=== PATIENT | female | born 1950 | race Hispanic/Latino ===

== ENCOUNTER → 2017-10-08 | Day surgery (SDC) | payer MEDICARE ==
[2017-10-04 16:08] LABS: BASOPHILS # (AUTO) 0.1 (0.0-0.1); BASOPHILS % 1.5 % (0.0-1.0); EOSINOPHILS # (AUTO) 0.4 (0.0-0.4); HEMATOCRIT 41.7 % (34.2-44.1); HEMOGLOBIN 13.8 g/dL (12.0-16.0); LYMPHOCYTES # (AUTO) 3.3 (1.0-3.2); LYMPHOCYTES % 37.6 % (18.0-39.1); MEAN CORPUSCULAR HEMOGLOBIN 28.8 pg (28-32); MEAN CORPUSCULAR HGB CONC 33.1 g/dL (31-35); MEAN CORPUSCULAR VOLUME 87.1 fL (81-99); MONOCYTES # (AUTO) 0.8 (0.2-0.8); MONOCYTES % 9.7 % (4.4-11.3); NEUTROPHILS # (AUTO) 4.1 (2.1-6.9); NEUTROPHILS % 46.9 % (38.7-80.0); PLATELET COUNT 272 x10e3/uL (140-360); RED BLOOD COUNT 4.79 x10e6/uL (3.6-5.1); RED CELL DISTRIBUTION WIDTH 12.4 % (11.7-14.4)
--- NOTE | 2017-10-04 16:44 | Diagnostic Imaging Report ---
PROCEDURE: Frontal and lateral views of the chest. COMPARISON: None. INDICATIONS: PRE-OPERATIVE CHEST X-RAY FOR CARPAL TUNNEL SYNDROME FINDINGS: Lines/tubes: None. Lungs: The lungs are well inflated and clear. There is no evidence of pneumonia or pulmonary edema. Pleura: There is no pleural effusion or pneumothorax. Heart and mediastinum: The heart and the mediastinum are normal. Bones: No acute bony abnormality. Right upper quadrant cholecystectomy clips. IMPRESSION: No acute cardiopulmonary disease. Dictated by: Minor Varela M.D. on 10/04/2017 at 16:44 Electronically approved by: Minor Varela M.D. on 10/04/2017 at 16:44
[~2017-10-08] MED LIST: BACLOFEN10 MG PO; BUPIVACAINE HCL 0.5% INJ 30 ML VIAL INJ ONE; CEFAZOLIN SOD 1 GM VIAL ONE; CIPRO500 MG PO; DEXAMETHASONE SOD PHOS INJ 4 MG/ML VIAL ONE; FENTANYL CITRATE/PF 100MCG/2 ML INJ ONE; KETOROLAC TROMETHAMINE 30 MG/ML VIAL ONE; LIDOCAINE HCL 2% LOCAL INJ 5 ML SDV VIAL INJ ONE; MIDAZOLAM HCL 2 MG/2 ML VIAL ONE; ONDANSETRON HCL INJ 2 MG/ML VIAL ONE; OXAPROZIN600 MG PO; PROPOFOL IV EMULSION 10 MG/ML 20 ML VIAL ONE; SEVOFLURANE INHAL SOLN 250 ML PEN BTL ONE
--- OUTSIDE RECORDS SUMMARY | 2017-10-08 09:56 | XMS REPORT ---
Author Author [facility] Address Unknown Phone Unavailable Care Team Providers Care Red Hat Engineer Name Role Phone ADI AU Unavailable Unavailable Problems This patient has no known problems. Allergies, Adverse Reactions, Alerts This patient has no known allergies or adverse reactions. Medications This patient has no known medications. Results Test Description Test Time Test Comments Text Results Atomic Results Result Comments CHEST 2 VIEWS [place] [address] Patient Name: JILLIAN CARDONA MR #: [id number] : 1950 Age/Sex: 67/F Req #: [id number] Adm Physician: Ordered by: ADI AU MD Report #: [id number] Location: OR Room/Bed: Procedure: [id number] DX/CHEST 2 VIEWS Exam Date: 10/04/17 Exam Time: 1622 REPORT STATUS: Signed PROCEDURE: Frontal and lateral views of the chest. COMPARISON: None. INDICATIONS: PRE-OPERATIVE CHEST X- RAY FOR CARPAL TUNNEL SYNDROME FINDINGS: Lines/tubes: None. Lungs: The lungs are well inflated and clear. There is no evidence of pneumonia or pulmonary edema. Pleura: There is no pleural effusion or pneumothorax. Heart and mediastinum: The heart and the mediastinum are normal. Bones: No acute bony abnormality. Right upper quadrant cholecystectomy clips. IMPRESSION: No acute cardiopulmonary disease. Dictated by: Amina Varela M.D. on 10/04/2017 at 16:44 Electronically approved by: Amina Varela M.D. on 10/04/2017 at 16:44 Dictated By: AMINA VARELA MD 43 Transcribed By: SUKHJINDER on 10/04/171643 COPY TO: ADI AU MD
--- NOTE | 2017-10-08 14:47 | Operative Report ---
DATE OF PROCEDURE: October 08, 2017 FURNITURE SALESPERSON: Nate Sampson PA-C The patient was brought to the operating room for induction of anesthesia. Throughout this case, my PA's assistance was necessary for retraction of soft tissue and positioning of the extremity. This allows for efficient and technically successful execution of the operation and is considered medically necessary. PREOPERATIVE DIAGNOSIS: Right hand carpal tunnel syndrome and 4th trigger finger. POSTOPERATIVE DIAGNOSIS: Right hand carpal tunnel syndrome and 4th trigger finger. PROCEDURE: Right endoscopic carpal tunnel release and release of the 4th trigger finger. INDICATIONS: The patient is a 67-year-old lady who has clinic signs and symptoms consistent with right carpal tunnel syndrome and right 4th trigger finger. The findings and options have been discussed. The patient has failed conservative management and would like to proceed with definitive intervention. The risks and benefits of surgery have been explained. She states she understands and wishes to proceed. DESCRIPTION OF PROCEDURE: The patient was brought to the operating room and placed under general anesthetic. She received prophylactic antibiotics. Her right upper extremity was prepped and draped in a sterile manner. A preoperative time out was performed. The extremity was exsanguinated, and a proximal tourniquet was inflated to 250 mmHg. Initial attention was directed towards the carpal tunnel. A transverse incision was made over the flexion crease of the right wrist. The palmaris longus was retracted to the radial side of the wound. The flexor retinaculum was elevated and incised with a pair of tenotomy scissors. An elevator was used to tease the tenosynovium off of the undersurface of the transverse carpal ligament. Dilators were placed, and the hook of the hamate was palpated. The MicroAire endoscope was then placed into the carpal tunnel. The undersurface of the transverse carpal ligament was cleanly visualized without evidence of soft-tissue interposition. The knife was deployed, and the ligament was cut from distal to proximal. Full-thickness cut was noted. The proximal retinaculum was incised under direct visualization with a pair of Metzenbaum scissors. The wound was then closed with 2 interrupted nylon stitches. A second incision was made in line with the distal palmar crease of the 4th finger. The A1 candelario was carefully exposed. This was released with a 15-blade surgical knife. The release was completed with a pair of tenotomy scissors. The tendon was retracted from the wound and noted to have no further stenosing tenosynovitis. There was some very linear abraded wear of the tendon. The 2nd incision was then also closed with 2 interrupted nylon stitches. A sterile bandage was applied. The patient was extubated and transported to the recovery room in stable condition. There was no blood loss, and all needle and sponge counts were correct. Job#: [id number]
== END | disposition home or self-care (01) ==
LOC: OR 09:54
PROVIDERS: ATTEND Specialist
DX: G56.01 Carpal tunnel syndrome, right upper limb (principal); M65.341 Trigger finger, right ring finger; M62.838 Other muscle spasm; K21.9 Gastro-esophageal reflux disease without esophagitis; Z01.810 Encounter for preprocedural cardiovascular examination; Z01.812 Encounter for preprocedural laboratory examination; Z01.818 Encounter for other preprocedural examination; Z68.35 Body mass index [BMI] 35.0-35.9, adult
CPT/HCPCS: 26055; 29848; 36415; 71046; 85025; 93005; J0690; J1100; J1885; J2001; J2250; J2405

== ENCOUNTER 2017-12-07 13:54 | Observation (INO) | payer MEDICARE ==
[~2017-12-07] VITALS: Ht 157.5 cm; Wt 88.9 kg
[~2017-12-07 13:54] MED LIST changes: -BUPIVACAINE HCL 0.5% INJ 30 ML VIAL INJ ONE; -CEFAZOLIN SOD 1 GM VIAL ONE; -DEXAMETHASONE SOD PHOS INJ 4 MG/ML VIAL ONE; -FENTANYL CITRATE/PF 100MCG/2 ML INJ ONE; -KETOROLAC TROMETHAMINE 30 MG/ML VIAL ONE; -LIDOCAINE HCL 2% LOCAL INJ 5 ML SDV VIAL INJ ONE; -MIDAZOLAM HCL 2 MG/2 ML VIAL ONE; -ONDANSETRON HCL INJ 2 MG/ML VIAL ONE; -PROPOFOL IV EMULSION 10 MG/ML 20 ML VIAL ONE; -SEVOFLURANE INHAL SOLN 250 ML PEN BTL ONE
[2017-12-07 14:34] LABS: BASOPHILS # (AUTO) 0.1 (0.0-0.1); BASOPHILS % 0.6 % (0.0-1.0); EOSINOPHILS # (AUTO) 0.2 (0.0-0.4); EOSINOPHILS % 2.6 % (0.0-6.0); HEMOGLOBIN 11.7 g/dL (12.0-16.0); LYMPHOCYTES # (AUTO) 1.8 (1.0-3.2); LYMPHOCYTES % 18.9 % (18.0-39.1); MEAN CORPUSCULAR HEMOGLOBIN 29.8 pg (28-32); MEAN CORPUSCULAR HGB CONC 33.4 g/dL (31-35); MEAN CORPUSCULAR VOLUME 89.1 fL (81-99); MONOCYTES # (AUTO) 0.8 (0.2-0.8); MONOCYTES % 9.1 % (4.4-11.3); NEUTROPHILS # (AUTO) 6.3 (2.1-6.9); NEUTROPHILS % 67.6 % (38.7-80.0); PLATELET COUNT 304 x10e3/uL (140-360); RED BLOOD COUNT 3.93 x10e6/uL (3.6-5.1); RED CELL DISTRIBUTION WIDTH 13.5 % (11.7-14.4)
[2017-12-07 14:49] LABS: ALANINE AMINOTRANSFERASE 13 IU/L (0-55); ALBUMIN 3.8 g/dL (3.5-5.0); ALBUMIN/GLOBULIN RATIO 1.1 (0.8-2.0); ALKALINE PHOSPHATASE 79 IU/L (40-150); ANION GAP 13.9 mmol/L (8-16); BLOOD UREA NITROGEN 20 mg/dL (7-26); BUN/CREATININE RATIO 27 (6-25); CALCIUM 9.1 mg/dL (8.4-10.2); CARBON DIOXIDE 23 mmol/L (22-29); CHLORIDE 105 mmol/L (98-107); CREATININE, SERUM 0.73 mg/dL (0.57-1.11); EST GLOMERULAR FILTRATION RATE > 60 ML/MIN (60-); GLUCOSE 103 mg/dL (74-118); POTASSIUM 3.9 mmol/L (3.5-5.1); SODIUM 138 mmol/L (136-145)
[2017-12-07] MEDS ORDERED: PROPOFOL IV EMULSION 10 MG/ML 20 ML VIAL ONE (15:45)
[2017-12-07] MEDS ORDERED: SEVOFLURANE INHAL SOLN 250 ML PEN BTL ONE (15:45)
[2017-12-07] MEDS ORDERED: ONDANSETRON HCL INJ 2 MG/ML VIAL ONE (15:45)
[2017-12-07] MEDS ORDERED: KETOROLAC TROMETHAMINE 30 MG/ML VIAL ONE (15:45)
[2017-12-07] MEDS ORDERED: DEXAMETHASONE SOD PHOS INJ 4 MG/ML VIAL ONE (15:45)
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
[2017-12-07 15:56] LABS: INR 1.25; PROTHROMBIN TIME 14.8 seconds (11.9-14.5)
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
[2017-12-07] MEDS ORDERED: IOPAMIDOL 370 MG/ML 200 ML INFUS..BTL INJ ONE (19:20)
[2017-12-07] MEDS ORDERED: SODIUM CHLORIDE 0.9% 50ML 50 ML ONE (19:20)
--- NOTE | 2017-12-07 22:08 | Diagnostic Imaging Report ---
EXAM: Breast Ultrasound INDICATION: \S\RIGHT BREAST HEMATOMA. R/O FLLUID COLLECTION COMPARISON: None TECHNIQUE: Transverse and longitudinal images of the left breast were obtained. FINDINGS: Limited images were obtained of the right breast soft tissues. This examination is not intended as a screening examination for breast cancer or replacement for mammogram. There is a large heterogeneous avascular collection in the right breast from 12-3 o'clock measuring 8 x 4.3 m cm. IMPRESSION: Large right breast hematoma. Recommend clinical and imaging follow-up to document resolution. Signed by: Dr Madeleine Sotomayor MD on 12/07/2017 10:04 PM
[2017-12-07] MEDS: SODIUM CHLORIDE 0.9% 1000ML 1,000 ML IV SCH (22:30)
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
[2017-12-08] VITALS (9 sets, daily range): BP systolic 124–158; BP diastolic 57–80
[2017-12-08] MEDS: SODIUM CHLORIDE 0.9% 1000ML 1,000 ML IV SCH ×2 (07:55→17:02)
[2017-12-08] MEDS ORDERED: BUPIVACAINE 0.25%/EPI 30ML SDV INJ ONE (09:48)
[2017-12-08] MEDS ORDERED: FENTANYL CITRATE/PF 100MCG/2 ML INJ ONE ×2 (10:45→16:08)
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
[2017-12-08] MEDS: HYDROCODONE/APAP 7.5MG-325MG 1 EA TAB PO PRN ×2 (14:06→21:26)
[2017-12-08] MEDS ORDERED: FAMOTIDINE 20 MG TAB PO SCH (16:00)
[2017-12-08] MEDS: FAMOTIDINE 20 MG TAB PO SCH (16:40)
[2017-12-08 17:38] LABS: CHOL/HDL RATIO 2.8 (3.0-3.6)
[2017-12-09] VITALS: BP 99/50
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
[2017-12-09 04:00] VITALS: BP 115/67
[2017-12-09] MEDS: HYDROCODONE/APAP 7.5MG-325MG 1 EA TAB PO PRN (07:30)
[2017-12-09 07:32] VITALS: BP 139/71
[2017-12-09 07:36] LABS: BASOPHILS % 0.4 % (0.0-1.0); EOSINOPHILS # (AUTO) 0.1 (0.0-0.4); EOSINOPHILS % 0.6 % (0.0-6.0); HEMATOCRIT 29.5 % (34.2-44.1); HEMOGLOBIN 9.8 g/dL (12.0-16.0); LYMPHOCYTES # (AUTO) 1.9 (1.0-3.2); MEAN CORPUSCULAR HEMOGLOBIN 30.2 pg (28-32); MEAN CORPUSCULAR HGB CONC 33.2 g/dL (31-35); MONOCYTES # (AUTO) 1.1 (0.2-0.8); MONOCYTES % 9.2 % (4.4-11.3); NEUTROPHILS # (AUTO) 8.2 (2.1-6.9); NEUTROPHILS % 71.7 % (38.7-80.0); PLATELET COUNT 276 x10e3/uL (140-360); RED BLOOD COUNT 3.24 x10e6/uL (3.6-5.1); RED CELL DISTRIBUTION WIDTH 13.5 % (11.7-14.4)
[2017-12-09 08:02] LABS: ANION GAP 8.9 mmol/L (8-16); BLOOD UREA NITROGEN 14 mg/dL (7-26); BUN/CREATININE RATIO 20 (6-25); CALCIUM 8.4 mg/dL (8.4-10.2); CARBON DIOXIDE 23 mmol/L (22-29); CHLORIDE 111 mmol/L (98-107); CREATININE, SERUM 0.69 mg/dL (0.57-1.11); EST GLOMERULAR FILTRATION RATE > 60 ML/MIN (60-); GLUCOSE 151 mg/dL (74-118); POTASSIUM 3.9 mmol/L (3.5-5.1); SODIUM 139 mmol/L (136-145)
[2017-12-09] MEDS: SODIUM CHLORIDE 0.9% 1000ML 1,000 ML IV SCH (08:20)
[2017-12-09] MEDS: FAMOTIDINE 20 MG TAB PO SCH (08:20)
[2017-12-09 12:23] VITALS: BP 130/64
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
== END 2017-12-09 02:00 | disposition home or self-care (01) ==
LOC: ER 13:54 → MED/SURG 23:26
PROVIDERS: ADMIT Internal Medicine; ATTEND Internal Medicine
DX: S20.01XA Contusion of right breast, initial encounter (principal); S22.41XA Multiple fractures of ribs, right side, initial encounter for closed fracture; S22.22XA Fracture of body of sternum, initial encounter for closed fracture; E80.6 Other disorders of bilirubin metabolism; K44.9 Diaphragmatic hernia without obstruction or gangrene; E66.9 Obesity, unspecified; V43.53XA Car driver injured in collision with pick-up truck in traffic accident, initial encounter; Y93.89 Activity, other specified; Y92.410 Unspecified street and highway as the place of occurrence of the external cause
CPT/HCPCS: 10140; 36415 ×3; 71045; 71260; 76642; 80048; 80053; 80061; 83036; 85025 ×2; 85610; 85730; 93005; 99284; G0378 ×3; J1100; J1885; J2405; J7030 ×2; Q9967

== ENCOUNTER 2018-04-23 02:00 | Emergency (ER) | payer MEDICARE ==
[~2018-04-23] VITALS: Ht 309.9 cm; Wt 88.9 kg
[2018-04-23] MEDS ORDERED: SODIUM CHLORIDE 0.9% 1000ML 1,000 ML IV ONE (02:30)
[2018-04-23] MEDS ORDERED: ACETAMINOPHEN 1000 MG/100 ML IV STA (02:30)
[2018-04-23 04:25] LABS: COLOR,URINE YELLOW (YELLOW)
[2018-04-23 04:26] LABS: BACTERIA,URINE MANY /HPF; BILIRUBIN,URINE NEGATIVE (NEGATIVE); CLARITY,URINE HAZY (CLEAR); EPITHELIAL CELLS,URINE FEW /LPF; KETONES,URINE NEGATIVE (NEGATIVE); LEUKOCYTE ESTERASE ,URINE 1+ (NEGATIVE); NITRITE,URINE NEGATIVE (NEGATIVE); PROTEIN,URINE DIPSTICK NEGATIVE (NEGATIVE); RBC,URINE 0-5 /HPF (0-5); URINE UROBILINOGEN 0.2 mg/dL (0.2 - 1); WBC,URINE (MAN) >50 /HPF (0-5)
[2018-04-23] MEDS ORDERED: PENICILLIN G BENZATHINE LA 1.2 MU TBX IM STA (04:28)
--- NOTE | 2018-04-23 04:30 | Diagnostic Imaging Report ---
EXAMINATION: Head CT without contrast. HISTORY:Fever. COMPARISON:None. TECHNIQUE: Multidetector axial images were obtained from the foramen magnum to the vertex without contrast. The images were reconstructed using brain and bone algorithms. Thin section brain images were reformatted into coronal and sagittal planes. Dose modulation, iterative reconstruction, and/or weight based adjustment of the mA/kV was utilized to reduce the radiation dose to as low as reasonably achievable. Intravenous contrast: None IMAGE QUALITY: Acceptable. FINDINGS: Skull/scalp: No lytic or blastic. lesions. No surgical changes. Parenchyma: Nonspecific few, scattered supratentorial white matter hypodensity are likely related to small vessel ischemic changes. Focal hypodensity in the inferior and posterior aspect of left putamen may represent old lacunar infarct or prominent perivascular space. No acute hemorrhage, mass or acute major vascular territorial infarct. Arteries: No density suggestive of thrombosis. Dural sinuses: No abnormal density suggestive of thrombosis. Ventricles: No hydrocephalus or displacement. Extra-axial spaces: No abnormal density. Brain volume: Normal for age. Craniocervical junction: No mass, Chiari malformation, or basilar invagination. Sella: No mass. Paranasal/mastoid sinuses: Under pneumatization and sclerosis of bilateral mastoid air cells possibly related to chronic inflammation. IMPRESSION: No acute intracranial abnormality. Mild supratentorial white matter microvascular ischemic changes. Old lacunar infarct vs prominent perivascular space in left putamen. Findings were informed to ER physician Dr. Mancilla by phone at 3:14 AM on 04/23/2018. Signed by: Dr. Tennille Carrion M.D. on 04/23/2018 4:26 AM
[2018-04-23 04:31] LABS: INFLUENZAE A&B ANTIGEN (RAPID) NEGATIVE (NEGATIVE); INR 1.1; PARTIAL THROMBOPLASTIN TIME 35.5 seconds (23.8-35.5); PROTHROMBIN TIME 15.2 seconds (11.9-14.5); STREPTOCOCCUS GRP A ANTIGEN POSITIVE (NEGATIVE)
[2018-04-23 04:33] LABS: ALANINE AMINOTRANSFERASE 12 IU/L (0-55); ALBUMIN 3.4 g/dL (3.5-5.0); ALBUMIN/GLOBULIN RATIO 0.9 (0.8-2.0); ALKALINE PHOSPHATASE 100 IU/L (40-150); ANION GAP 17.5 mmol/L (8-16); BLOOD UREA NITROGEN 12 mg/dL (7-26); BUN/CREATININE RATIO 16 (6-25); CALCIUM 8.7 mg/dL (8.4-10.2); CARBON DIOXIDE 19 mmol/L (22-29); CHLORIDE 103 mmol/L (98-107); CREATINE KINASE 23 IU/L (29-168); CREATININE, SERUM 0.74 mg/dL (0.57-1.11); EST GLOMERULAR FILTRATION RATE > 60 ML/MIN (60-); GLUCOSE 175 mg/dL (74-118); POTASSIUM 3.5 mmol/L (3.5-5.1); SODIUM 136 mmol/L (136-145)
[2018-04-23 04:34] LABS: BASOPHILS # (AUTO) 0.1 (0.0-0.1); BASOPHILS % 0.6 % (0.0-1.0); EOSINOPHILS # (AUTO) 0.3 (0.0-0.4); EOSINOPHILS % 1.7 % (0.0-6.0); HEMATOCRIT 36.1 % (34.2-44.1); LYMPHOCYTES # (AUTO) 1.1 (1.0-3.2); LYMPHOCYTES % 6.7 % (18.0-39.1); MEAN CORPUSCULAR HEMOGLOBIN 28.2 pg (28-32); MEAN CORPUSCULAR HGB CONC 33.2 g/dL (31-35); MEAN CORPUSCULAR VOLUME 84.9 fL (81-99); MONOCYTES # (AUTO) 0.9 (0.2-0.8); MONOCYTES % 5.5 % (4.4-11.3); NEUTROPHILS # (AUTO) 13.4 (2.1-6.9); NEUTROPHILS % 84.2 % (38.7-80.0); PLATELET COUNT 241 x10e3/uL (140-360); RED BLOOD COUNT 4.25 x10e6/uL (3.6-5.1); RED CELL DISTRIBUTION WIDTH 13.8 % (11.7-14.4)
--- NOTE | 2018-04-23 04:35 | Diagnostic Imaging Report ---
EXAMINATION: CHEST 2 VIEWS INDICATION: Fever COMPARISON: None FINDINGS: TUBES and LINES: None. LUNGS: Lungs are well inflated. Lungs are clear. There is no evidence of pneumonia or pulmonary edema. PLEURA: No pleural effusion or pneumothorax. HEART AND MEDIASTINUM: The cardiomediastinal silhouette is unremarkable. BONES AND SOFT TISSUES: No acute osseous lesion. Soft tissues are unremarkable. UPPER ABDOMEN: No free air under the diaphragm. IMPRESSION: No acute thoracic abnormality. Signed by: Dr. Eleuterio Ovalle M.D. on 04/23/2018 4:32 AM
[2018-04-23 04:59] VITALS: BP 108/55
== END 2018-04-23 05:06 | disposition home or self-care (01) ==
LOC: ER 02:00
DX: R50.9 Fever, unspecified (principal); J02.0 Streptococcal pharyngitis; N30.90 Cystitis, unspecified without hematuria
CPT/HCPCS: 36415; 70450; 71046; 80053; 81001; 82550; 82553; 83518; 83605; 84484; 85025; 85610; 85730; 87040; 87071; 87086; 87186; 87205; 87400; 99284; J0561

== ENCOUNTER 2018-10-01 07:26 | Inpatient (IN) | payer MEDICARE, OTHER ==
[~2018-10-01] VITALS: Ht 157.5 cm; Wt 93.4 kg
[2018-10-01] MEDS: DILTIAZEM HCL 5 MG/ML 5 ML VIAL IV STA ×2 (07:26→08:26)
--- OUTSIDE RECORDS SUMMARY | 2018-10-01 07:29 | XMS REPORT | Summary of Care ---
Author Author [facility] [place] Organization [facility] [place] Address Unknown Phone Unavailable Encounter HQ Joelle_najma(FIN) [id number] Date(s): 08/21/18 - 08/21/18 [facility] [place] [address] [place] [phone] Discharge Disposition: Home or Self Care Attending Physician: Jose Davila MD Referring Physician: Jose Davila MD Vital Signs No data available for this section Problem List Condition Effective Dates Status Health Status Informant Escherichia Active coli(Confirmed)1 Fibromyalgia(Confirm Active ed) Kidney Active stones(Confirmed) 1Problem added by Discern Expert. Allergies, Adverse Reactions, Alerts Substance Reaction Severity Status ciprofloxacin1 Moderate Active 1pt face became swollen and she broke out in hives Medications No data available for this section Results No data available for this section Immunizations Given and Recorded Vaccine Date Status Refusal Reason diphtheria/pertussis, acel/tetanus adult 11/09/15 Given Procedures Procedure Date Related Diagnosis Body Site Status Arthroscopic surgical procedure on knee Completed Carpal tunnel release Completed Cholecystectomy Completed Hysterectomy Completed Social History Social History Type Response Substance Abuse Use: None. Alcohol Never Smoking Status Never smoker; Exposure to Tobacco Smoke None; Cigarette Smoking Last 365 Days No; Reg Smoking Cessation Counseling No entered on: 06/25/18 Assessment and Plan No data available for this section
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
--- OUTSIDE RECORDS SUMMARY | 2018-10-01 07:29 | XMS REPORT | Summary of Care ---
Author Author [facility] [place] Organization [facility] [place] Address Unknown Phone Unavailable Encounter HQ Joelle_najma(FIN) [phone] Date(s): 09/12/17 - 09/12/17 [facility] [place] [address] [place] [address] [phone] Encounter Diagnosis Low back pain (Final) - 09/18/17 Other intervertebral disc degeneration, lumbar region (Final) - Other specific arthropathies, not elsewhere classified, other specified site (Final) - Discharge Disposition: Home or Self Care Attending Physician: Jose Davila MD Vital Signs No data available for this section Problem List Condition Effective Dates Status Health Status Informant Fibromyalgia(Confirm Active ed) Kidney Active stones(Confirmed) Allergies, Adverse Reactions, Alerts Substance Reaction Severity Status NKDA Active Medications No data available for this section [...] No entered on: 11/28/17 Assessment and Plan No data available for this section
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
--- OUTSIDE RECORDS SUMMARY | 2018-10-01 07:29 | XMS REPORT | Summary of Care ---
Author Author [facility] Outpatient Imaging [facility] Address Unknown Phone Unavailable Encounter HQ Encntr_alias(FIN) [id number] Date(s): 02/21/18 - 02/21/18 [facility] Outpatient Imaging [facility] [address] [facility], [address] [place] [phone] Encounter Diagnosis Pain in left leg (Final) - 02/28/18 Pain in right leg (Final) - Discharge Disposition: Home or Self [...]
--- OUTSIDE RECORDS SUMMARY | 2018-10-01 07:29 | XMS REPORT | Summary of Care ---
Author Author [facility] [place] Organization [facility] [place] Address Unknown Phone Unavailable Encounter HQ Facundo(FIN) [id number] Date(s): 10/06/17 - 10/06/17 [facility] [place] [address] [place] [phone] Encounter Diagnosis Radiculopathy, lumbar region (Final) - 10/12/17 Spondylolisthesis, lumbar region (Final) - Spinal stenosis, lumbar region without neurogenic claudication (Final) - Spinal stenosis, thoracolumbar region (Final) - Other specific arthropathies, not [...]
[2018-10-01] MEDS ORDERED: DILTIAZEM HCL 125 ML IV STA (07:42)
--- NOTE | 2018-10-01 08:27 | NUR ---
PATIENT IN HALLWAY ON ZOLL MONITOR, MOVED TO ROOM #3 AND PLACED ON INJECTION MOLDING ENGINEER
[2018-10-01] MEDS: DILTIAZEM HCL 125 ML IV SCH (08:28)
--- NOTE | 2018-10-01 08:28 | NUR ---
HR 136 INCREASED CARDIZEM GTT 10MG/HR
--- NOTE | 2018-10-01 08:35 | Diagnostic Imaging Report ---
PROCEDURE:X-RAY CHEST, ONE VIEW COMPARISON:Patients [facility], DX, CHEST 2 VIEWS, 04/23/2018, 2:40. INDICATIONS:CHEST PAIN, CHEST TIGHTNESS FINDINGS: There are no consolidations, pleural effusions or pneumothorax. The cardiomediastinal silhouette and pulmonary vasculature are normal. There are no acute osseous abnormalities. CONCLUSION: No acute cardiopulmonary abnormality. Bryan Sanz D.O. Dictated by: Bryan Sanz D.O. on 10/01/2018 at 8:35 Electronically approved by: Bryan Sanz D.O. on 10/01/2018 at 8:35
[2018-10-01 08:42] LABS: BASOPHILS # (AUTO) 0.1 (0.0-0.1); BASOPHILS % 0.6 % (0.0-1.0); EOSINOPHILS # (AUTO) 0.2 (0.0-0.4); EOSINOPHILS % 2.1 % (0.0-6.0); HEMATOCRIT 39.4 % (34.2-44.1); LYMPHOCYTES # (AUTO) 2.5 (1.0-3.2); LYMPHOCYTES % 26.3 % (18.0-39.1); MEAN CORPUSCULAR VOLUME 84.9 fL (81-99); MONOCYTES # (AUTO) 0.8 (0.2-0.8); MONOCYTES % 8.4 % (4.4-11.3); NEUTROPHILS # (AUTO) 5.8 (2.1-6.9); PLATELET COUNT 239 x10e3/uL (140-360); RED BLOOD COUNT 4.64 x10e6/uL (3.6-5.1); RED CELL DISTRIBUTION WIDTH 13.2 % (11.7-14.4)
[2018-10-01 08:56] LABS: ALANINE AMINOTRANSFERASE 9 IU/L (0-55); ALBUMIN 3.6 g/dL (3.5-5.0); ALKALINE PHOSPHATASE 69 IU/L (40-150); ANION GAP 13.4 mmol/L (8-16); BLOOD UREA NITROGEN 16 mg/dL (7-26); BUN/CREATININE RATIO 21 (6-25); CALCIUM 9.2 mg/dL (8.4-10.2); CARBON DIOXIDE 22 mmol/L (22-29); CHLORIDE 103 mmol/L (98-107); CREATINE KINASE 42 IU/L (29-168); CREATININE, SERUM 0.76 mg/dL (0.57-1.11); EST GLOMERULAR FILTRATION RATE > 60 ML/MIN (60-); GLUCOSE 144 mg/dL (74-118); POTASSIUM 3.4 mmol/L (3.5-5.1); SODIUM 135 mmol/L (136-145)
--- NOTE | 2018-10-01 08:57 | NUR ---
HR 143 INCREASED CARDIZEM GTT TO 15MG/HR
--- NOTE | 2018-10-01 09:07 | NUR ---
CULTURAL LINK USED AT TRIAGE AND TO UPDATE PATIENT ON PLAN OF CARE
[2018-10-01 09:14] LABS: INR 0.99; PROTHROMBIN TIME 13.6 seconds (11.9-14.5)
[2018-10-01 09:15] LABS: PARTIAL THROMBOPLASTIN TIME 40.1 seconds (23.8-35.5)
[2018-10-01 09:17] LABS: THYROID STIMULATING HORMONE 2.123 uIU/mL (0.350-4.940)
[2018-10-01] MEDS ORDERED: OMEPRAZOLE40 MG PO (09:22)
[2018-10-01] MEDS ORDERED: PEPCID20 MG PO (09:22)
--- NOTE | 2018-10-01 09:25 | NUR ---
SPOKE WITH DAUGHTER ON PHONE UPDATING HER ON HER MOMS STATUS
[2018-10-01] MEDS ORDERED: DIGOXIN INJ 0.25 MG/ML 2 ML AMP IV ONE (09:30)
[2018-10-01 09:31] LABS: COLOR,URINE YELLOW (YELLOW)
[2018-10-01 09:32] LABS: BILIRUBIN,URINE NEGATIVE (NEGATIVE); CLARITY,URINE CLOUDY (CLEAR); KETONES,URINE NEGATIVE (NEGATIVE); LEUKOCYTE ESTERASE ,URINE 1+ (NEGATIVE); NITRITE,URINE POSITIVE (NEGATIVE); PROTEIN,URINE DIPSTICK NEGATIVE (NEGATIVE); URINE UROBILINOGEN 0.2 mg/dL (0.2 - 1)
[2018-10-01 09:38] LABS: WBC,URINE (MAN) >50 /HPF (0-5)
[2018-10-01 09:39] LABS: BACTERIA,URINE MANY /HPF; EPITHELIAL CELLS,URINE FEW /LPF; RBC,URINE 0-5 /HPF (0-5)
[2018-10-01] MEDS ORDERED: ENOXAPARIN INJ 80 MG/0.8 ML SYR SC STA (09:40)
[2018-10-01] MEDS ORDERED: CEFTRIAXONE SOD 1 GM/NS 50 ML 50 ML IV ONE ×2 (09:45→10:00)
[2018-10-01] MEDS ORDERED: ENOXAPARIN INJ 80 MG/0.8 ML SYR SC ONE (09:46)
[2018-10-01] MEDS ORDERED: DIGOXIN INJ 0.25 MG/ML 2 ML AMP ONE (09:46)
[2018-10-01] MEDS ORDERED: POTASSIUM CHLORIDE 20 MEQ TAB CR PO STA (10:32)
[2018-10-01] MEDS ORDERED: POTASSIUM CHLORIDE 20 MEQ TAB CR PO ONE (10:37)
[2018-10-01] MEDS ORDERED: AMIODARONE HCL 900 MG in DEXTROSE 5% 500ML 500 ML IV STA (10:42)
[2018-10-01] MEDS ORDERED: AMIODARONE HCL 150 MG/100 ML BAG IV ONE (10:45)
--- NOTE | 2018-10-01 11:28 | NUR ---
PER DR. MCNEAL, HE WANTS TO STOP CARDIZEM DRIP AND START AMIODORONE
[2018-10-01] MEDS ORDERED: AMIODARONE 900MG 500 ML IV ONE (11:33)
[2018-10-01] MEDS ORDERED: AMIODARONE HCL 150MG 100 ML ONE (11:33)
--- NOTE | 2018-10-01 12:02 | NUR ---
BEDSIDE REPORT CLAUDIA BOSS R.N.
[2018-10-01 17:31] LABS: CREATINE KINASE MB 0.8 ng/mL (0-5.0)
--- NOTE | 2018-10-01 18:59 | Consultation ---
DATE OF CONSULTATION: 10/01/2018 Cardiology Consult Note REASON FOR CONSULT: AFib with RVR and chest pain. CHIEF COMPLAINT: Chest pain. HISTORY OF PRESENT ILLNESS: The patient is a 68-year-old female, with no prior medical or cardiovascular history, who presents with several episodes of pressure in the middle of her chest and palpitations over the last 12 to 24 hours, finally presented to the ER, noted to be having heart rates in the 140s in atrial fibrillation with RVR, was started on amiodarone drip and has now converted to sinus rhythm, says she feels better. The patient is a nonsmoker, nondiabetic. No family history of CAD. Does not have hypertension or hyperlipidemia as per the patient. Does not take any medicines as an outpatient. PAST MEDICAL HISTORY: None. PAST SURGICAL HISTORY: None. REVIEW OF SYSTEMS: As per the HPI, otherwise negative. SOCIAL HISTORY: She does not smoke, drink, or abuse drugs. FAMILY HISTORY: No family history of early CAD or sudden cardiac . OUTPATIENT MEDICATIONS: None. ALLERGIES: NO KNOWN DRUG ALLERGIES. OBJECTIVE: VITAL SIGNS: Temperature afebrile, pulse 72, respiratory rate 22, blood pressure 108/60, saturating 100%. GENERAL: Middle-aged female, in no acute distress. CARDIOVASCULAR: Regular rate and rhythm. No murmurs, rubs, or gallops. LUNGS: Clear to auscultation bilaterally. ABDOMEN: Soft, nontender, nondistended. NEURO AND PSYCH: Alert and oriented to person, place, and time. Normal affect. INPATIENT MEDICATIONS: Reviewed. LABORATORY DATA: Reviewed. IMAGING DATA: Reviewed. Chest x-ray shows no significant abnormalities. TELEMETRY DATA: Reviewed, shows AFib with RVR on presentation, converted to sinus rhythm with heart rate now in the 70s. ASSESSMENT: 1. Atrial fibrillation with rapid ventricular response, now converted to sinus rhythm. 2. Chest pain. PLAN: Troponin is negative on presentation. Check serial troponins to rule out acute NC. If acute NC is ruled out, then we will plan for nuclear stress test in the morning. Start oral diltiazem for rate control. Thank you for this consult. We will continue to follow. MD ASIF Thapa/MODL /[id number]
[2018-10-01] MEDS: ENOXAPARIN INJ 80 MG/0.8 ML SYR SC SCH (21:57)
[2018-10-01] MEDS ORDERED: ENOXAPARIN SODIUM INJ 100 MG/ML SYR SC SCH (22:00)
[2018-10-02] MEDS: DILTIAZEM HCL 125 ML IV SCH (08:10)
[2018-10-02 08:13] LABS: CHOL/HDL RATIO 2.9 (3.0-3.6)
[2018-10-02 08:20] LABS: CREATINE KINASE MB 0.6 ng/mL (0-5.0)
[2018-10-02] MEDS: ENOXAPARIN INJ 80 MG/0.8 ML SYR SC SCH ×2 (09:17→21:00)
[2018-10-02] MEDS: DILTIAZEM HCL ER 120 MG CAP PO SCH (09:17)
--- NOTE | 2018-10-02 10:46 | NUR ---
CONSENT FOR STRESS TEST SIGNED AND PLACED INTO CHART.
--- NOTE | 2018-10-02 11:04 | NUR ---
SPOKE WITH DR. MCCOY. RECEIVED ORDERS TO DOWNGRADE PATIENT FROM ICU TO [facility].
[2018-10-02] MEDS ORDERED: REGADENOSON 0.4 MG/5 ML SYR IV ONE (11:17)
--- NOTE | 2018-10-02 15:30 | Progress Note ---
DATE: 10/02/2018 Cardiology Progress Note SUBJECTIVE: No major events overnight. No more atrial fibrillation. OBJECTIVE: VITAL SIGNS: Temperature 98.1, pulse 72, respiratory rate 18, blood pressure 117/61, and saturating 98% on room air. GENERAL: female, in no acute distress. CARDIOVASCULAR: Regular rate and rhythm. No murmurs, rubs, or gallops. LUNGS: Clear to auscultation bilaterally. ABDOMEN: Soft, nontender, and nondistended. Obese. NEURO AND PSYCH: Alert and oriented to person, place, and time. Normal affect. INPATIENT MEDICATIONS: Reviewed. LABORATORY DATA: Reviewed. IMAGING DATA: Reviewed. TELEMETRY: Reviewed. No more atrial fibrillation. ASSESSMENT: 1. New-onset atrial fibrillation. 2. Hypertension. PLAN: Continue diltiazem 120 mg p.o. We will change the Lovenox over to Xarelto. CHADS-VASc score is 3 as the patient is female over 65 and has hypertension. Nuclear stress test today to rule out ischemia given earlier chest pain. Thank you for this consult. We will continue to follow. MD NURY ThapaP/MODL /[id number]
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
[2018-10-02] MEDS ORDERED: CEFTRIAXONE SOD 1 GM/NS 50 ML 50 ML IV SCH (16:45)
[2018-10-02] MEDS ORDERED: FAMOTIDINE 20 MG TAB PO SCH (17:00)
[2018-10-02] MEDS: FAMOTIDINE 20 MG TAB PO SCH (17:28)
[2018-10-02 19:40] LABS: POTASSIUM 3.8 mmol/L (3.5-5.1)
[2018-10-02 20:00] VITALS: BP 133/62
[2018-10-02 20:09] VITALS: BP 133/62
[2018-10-03] VITALS (8 sets, daily range): BP systolic 111–149; BP diastolic 61–82
--- NOTE | 2018-10-03 06:57 | NUR ---
IM-progress note O/N; no events REVIEW OF SYSTEMS: Denies any dizziness, chest pain. PHYSICAL EXAMINATION: VITAL SIGNS: Reviewed. GENERAL APPEARANCE: Tired-appearing woman resting in bed. HEENT: Anicteric. Pupils respond to light. No oral lesions. CARDIOVASCULAR: Normal S1 and S2. LUNGS: Moderate breath sounds. ABDOMEN: Soft, nontender, nondistended. EXTREMITIES: No edema or calf tenderness. NEUROLOGICAL: Alert and oriented x3. Moving all extremities. SKIN: Dry. PSYCHIATRIC: Flat affect. LABS: Reviewed. MEDICATIONS: Reviewed. ASSESSMENT: A 67-year-old woman. A.fib with RVR UTI Hypokalemia atypical chest pain obesity BMI 35 PLAN: AV blockade IV abx f/u cx recheck lytes hba1c/lipids TSH normal pepcid on AC 10/03/18 Hba1c/LDL 5.6/91. HR controlled; f/u GNR UTI fx. Ruben Ramirez MD, PhD
--- NOTE | 2018-10-03 07:01 | NUR ---
REPORT GIVEN TO ONCOMING NURSE.WALKING ROUNDS MADE.PT RESTING IN BED WITH NO S/S OF DISTRESS.
[2018-10-03] MEDS: FAMOTIDINE 20 MG TAB PO SCH ×2 (09:28→16:32)
[2018-10-03] MEDS: DILTIAZEM HCL ER 120 MG CAP PO SCH (09:35)
[2018-10-03] MEDS ORDERED: SODIUM CHLORIDE 0.9% 250ML 250 ML ONE (12:39)
[2018-10-03] MEDS: MEROPENEM 500MG/ NS 50ML 50 ML IV SCH ×2 (12:45→20:09)
[2018-10-03] MEDS: RIVAROXABAN 20 MG TABLET PO SCH (16:32)
[2018-10-03] MEDS ORDERED: FLECTOR1 EACH PO (16:54)
[2018-10-03] MEDS: DICLOFENAC EPOLAMINE 1.3% PATCH TP SCH (18:20)
--- NOTE | 2018-10-03 19:42 | Progress Note ---
DATE: 10/03/2018 Cardiology Progress Note SUBJECTIVE: No major events overnight. OBJECTIVE: VITAL SIGNS: Temperature 96.6, pulse 84, respiratory rate 20, blood pressure 111/61, saturating 95% on room air. GENERAL: female, in no acute distress. CARDIOVASCULAR: Regular rate and rhythm. No murmurs, rubs, or gallops. LUNGS: Clear to auscultation bilaterally. ABDOMEN: Soft, nontender, nondistended. NEURO AND PSYCH: Alert and oriented to person, place, and time. Normal affect. INPATIENT MEDICATIONS: Reviewed. LABORATORY DATA: Reviewed. IMAGING DATA: Reviewed. Nuclear stress test yesterday shows normal perfusion, normal LV function. ASSESSMENT: 1. New onset atrial fibrillation with rapid ventricular response. 2. Hypertension. PLAN: Continue diltiazem 120 mg p.o. daily. Stop Lovenox. Start Xarelto 20 mg daily. CHADS-VASc score is 3. Follow up in clinic 2 weeks after discharge. The patient is okay to be discharged from cardiovascular standpoint. Thank you for this consult. We will continue to follow. MD NURY ThapaP/JESUSL /[id number]
[2018-10-04] VITALS (7 sets, daily range): BP systolic 112–141; BP diastolic 61–73
[2018-10-04] MEDS: MEROPENEM 500MG/ NS 50ML 50 ML IV SCH ×3 (04:18→20:06)
--- NOTE | 2018-10-04 07:12 | NUR ---
REPORT GIVEN TO ONCOMING NURSE.WALKING ROUNDS MADE.PT RESTING IN BED WITH NO S/S OF DISTRESS.
--- NOTE | 2018-10-04 08:16 | NUR ---
IMM letter delivered and explained to pt. She verbalized understanding, stated she is ready to go home when the MDs discharges her. Signed copy placed in chart. Norwegian copy left for pt.
[2018-10-04] MEDS: DICLOFENAC EPOLAMINE 1.3% PATCH TP SCH ×2 (08:56→16:46)
[2018-10-04] MEDS: FAMOTIDINE 20 MG TAB PO SCH ×2 (08:56→16:46)
[2018-10-04] MEDS: DILTIAZEM HCL ER 120 MG CAP PO SCH (08:56)
[2018-10-04] MEDS ORDERED: SODIUM CHLORIDE 0.9% 250ML 250 ML ONE (12:01)
[2018-10-04] MEDS: RIVAROXABAN 20 MG TABLET PO SCH (16:46)
--- NOTE | 2018-10-04 16:58 | Progress Note ---
DATE: 10/04/2018 Cardiology Progress Note SUBJECTIVE: No major events overnight. OBJECTIVE: VITAL SIGNS: Temperature afebrile, pulse 63, respiratory rate 19, blood pressure 112/62, and saturating 97% on room air. GENERAL: Elderly female in no acute distress. CARDIOVASCULAR: Regular rate and rhythm. No murmurs, rubs, or gallops. LUNGS: Clear to auscultation bilaterally. ABDOMEN: Obese, soft, nontender, nondistended. NEURO AND PSYCH: Alert and oriented to person and time. Normal affect. INPATIENT MEDICATIONS: Reviewed. LABORATORY DATA: Reviewed. IMAGING DATA: Reviewed. ASSESSMENT: 1. Atrial fibrillation with rapid ventricular response. 2. Chest pain. 3. Hypertension. PLAN: Continue diltiazem. Started Xarelto. Blood pressure is now well controlled. Nuclear stress test was negative. The patient is okay to be discharged home from cardiovascular standpoint. Thank you for this consult. We will continue to follow. MD ASIF Thapa/DAVID /[id number]
--- NOTE | 2018-10-04 18:10 | NUR ---
IM-progress note O/N; no events REVIEW OF SYSTEMS: Denies any dizziness, chest pain. PHYSICAL EXAMINATION: VITAL SIGNS: Reviewed. GENERAL APPEARANCE: Tired-appearing woman resting in bed. HEENT: Anicteric. Pupils respond to light. No oral lesions. CARDIOVASCULAR: Normal S1 and S2. LUNGS: Moderate breath sounds. ABDOMEN: Soft, nontender, nondistended. EXTREMITIES: No edema or calf tenderness. NEUROLOGICAL: Alert and oriented x3. Moving all extremities. SKIN: Dry. PSYCHIATRIC: Flat affect. LABS: Reviewed. MEDICATIONS: Reviewed. ASSESSMENT: A 67-year-old woman. A.fib with RVR UTI Hypokalemia atypical chest pain obesity BMI 35 PLAN: AV blockade IV abx f/u cx recheck lytes hba1c/lipids TSH normal pepcid on AC 10/03/18 Hba1c/LDL 5.6/91. HR controlled; f/u GNR UTI fx. 10/04 ESBL E.coli UTI; cont merrem; Hba1c/LDL 5.6/91 Ruben Ramirez MD, PhD
--- NOTE | 2018-10-04 18:54 | NUR ---
Resting in bed, side rails upx2, call light within reach. AAOX4 to time, person, place, situation. Respirations even and unlabored. Denies pain. Report to be given to oncoming nurse.
[2018-10-05] VITALS: BP 136/60
[2018-10-05 04:00] VITALS: BP 156/75
[2018-10-05] MEDS: MEROPENEM 500MG/ NS 50ML 50 ML IV SCH ×3 (04:30→20:29)
--- NOTE | 2018-10-05 06:26 | NUR ---
IM-progress note O/N; no events REVIEW OF SYSTEMS: Denies any dizziness, chest pain. PHYSICAL EXAMINATION: VITAL SIGNS: Reviewed. GENERAL APPEARANCE: Tired-appearing woman resting in bed. HEENT: Anicteric. Pupils respond to light. No oral lesions. CARDIOVASCULAR: Normal S1 and S2. LUNGS: Moderate breath sounds. ABDOMEN: Soft, nontender, nondistended. EXTREMITIES: No edema or calf tenderness. NEUROLOGICAL: Alert and oriented x3. Moving all extremities. SKIN: Dry. PSYCHIATRIC: Flat affect. LABS: Reviewed. MEDICATIONS: Reviewed. ASSESSMENT: A 67-year-old woman. A.fib with RVR UTI Hypokalemia atypical chest pain obesity BMI 35 PLAN: AV blockade IV abx f/u cx recheck lytes hba1c/lipids TSH normal pepcid on AC 10/03/18 Hba1c/LDL 5.6/91. HR controlled; f/u GNR UTI fx. 10/04 ESBL E.coli UTI; cont merrem; Hba1c/LDL 5.6/91 10/05 stress test negative; continue IV abx; D#3 Plan to recheck UA tomorrow; Ruben Ramirez MD, PhD
--- NOTE | 2018-10-05 07:13 | NUR ---
pt alert resp even and unlabored at this time no distress noted, pt has no c/o pain when asked, pt able to make needs known pt has call light in reach, will cont to monitor
[2018-10-05] MEDS: FAMOTIDINE 20 MG TAB PO SCH ×2 (07:30→16:51)
[2018-10-05 08:43] VITALS: BP 119/70
[2018-10-05] MEDS: DICLOFENAC EPOLAMINE 1.3% PATCH TP SCH ×2 (09:00→16:52)
[2018-10-05] MEDS: DILTIAZEM HCL ER 120 MG CAP PO SCH (09:00)
[2018-10-05] MEDS ORDERED: ACETAMINOPHEN 325 MG TAB PO PRN (11:45)
--- NOTE | 2018-10-05 13:03 | NUR ---
CM communication requesting SNF evaluation. However, PT met with patient and she ambulating beyond what is required for service.
[2018-10-05 13:47] VITALS: BP 113/66
[2018-10-05 16:13] VITALS: BP 131/67
[2018-10-05] MEDS: RIVAROXABAN 20 MG TABLET PO SCH (16:51)
--- NOTE | 2018-10-05 19:12 | NUR ---
report given to oncoming nurse, for cont. care.
[2018-10-05 20:00] VITALS: BP 130/59
[2018-10-06] VITALS (7 sets, daily range): BP systolic 119–138; BP diastolic 63–80
[2018-10-06] MEDS: MEROPENEM 500MG/ NS 50ML 50 ML IV SCH ×3 (03:45→20:39)
--- NOTE | 2018-10-06 07:14 | NUR ---
pt asleep resp even and unlabored at this time no distress noted, pt arousal to name, call light in reach
[2018-10-06] MEDS: FAMOTIDINE 20 MG TAB PO SCH ×2 (07:30→16:37)
[2018-10-06] MEDS: DILTIAZEM HCL ER 120 MG CAP PO SCH (08:38)
[2018-10-06] MEDS: DICLOFENAC EPOLAMINE 1.3% PATCH TP SCH ×2 (12:18→18:14)
--- NOTE | 2018-10-06 14:15 | NUR ---
Visit made by the Spiritual Care Department Pastoral Visitor, Radha Olson. PV provided pastoral presence, hospitality, and supportive listening. Pastoral Visitor informed pt/family of the scope of [facility] and availability. MARIAM BARKER Bale Tie Machine Operator Spiritual Care Department O: [phone] Pager: [phone] ([phone] number calling from)
[2018-10-06] MEDS: RIVAROXABAN 20 MG TABLET PO SCH (16:37)
--- NOTE | 2018-10-06 19:17 | NUR ---
report given to oncoming nurse, for continued care.
--- NOTE | 2018-10-06 19:49 | NUR ---
IM-progress note O/N; no events REVIEW OF SYSTEMS: Denies any dizziness, chest pain. PHYSICAL EXAMINATION: VITAL SIGNS: Reviewed. GENERAL APPEARANCE: Tired-appearing woman resting in bed. HEENT: Anicteric. Pupils respond to light. No oral lesions. CARDIOVASCULAR: Normal S1 and S2. LUNGS: Moderate breath sounds. ABDOMEN: Soft, nontender, nondistended. EXTREMITIES: No edema or calf tenderness. NEUROLOGICAL: Alert and oriented x3. Moving all extremities. SKIN: Dry. PSYCHIATRIC: Flat affect. LABS: Reviewed. MEDICATIONS: Reviewed. ASSESSMENT: A 67-year-old woman. A.fib with RVR UTI Hypokalemia atypical chest pain obesity BMI 35 PLAN: AV blockade IV abx f/u cx recheck lytes hba1c/lipids TSH normal pepcid on AC 10/03/18 Hba1c/LDL 5.6/91. HR controlled; f/u GNR UTI fx. 10/04 ESBL E.coli UTI; cont merrem; Hba1c/LDL 5.6/91 10/05 stress test negative; continue IV abx; D#3 Plan to recheck UA tomorrow; 10/06 f/u UA. Ruben Ramirez MD, PhD
--- NOTE | 2018-10-06 20:39 | NUR ---
new 20g IV started to left forearm
[2018-10-06 21:09] LABS: BILIRUBIN,URINE NEGATIVE (NEGATIVE); CLARITY,URINE CLEAR (CLEAR); COLOR,URINE YELLOW (YELLOW); KETONES,URINE NEGATIVE (NEGATIVE); LEUKOCYTE ESTERASE ,URINE NEGATIVE (NEGATIVE); NITRITE,URINE NEGATIVE (NEGATIVE); PROTEIN,URINE DIPSTICK NEGATIVE (NEGATIVE); URINE UROBILINOGEN 0.2 mg/dL (0.2 - 1)
[2018-10-06 21:17] LABS: BACTERIA,URINE RARE /HPF; EPITHELIAL CELLS,URINE RARE /LPF; WBC,URINE (MAN) 0-5 /HPF (0-5)
[2018-10-06] MEDS ORDERED: XARELTO10 MG PO (22:19)
[2018-10-06] MEDS ORDERED: DILTIAZEM 24HR120 M1 PO (22:19)
[2018-10-06] MEDS ORDERED: NITROFURANTOIN100 MG PO (22:19)
[2018-10-07] VITALS: BP 101/76
[2018-10-07 04:00] VITALS: BP 118/77
[2018-10-07] MEDS: MEROPENEM 500MG/ NS 50ML 50 ML IV SCH (04:25)
--- NOTE | 2018-10-07 07:00 | NUR ---
BEDSIDE REPORT TAKEN FROM GALLERY OR MUSEUM CURATOR RN. PT DENIES NEEDS AT THIS TIME.
[2018-10-07 08:01] VITALS: BP 135/61
[2018-10-07 09:00] VITALS: BP 135/61
[2018-10-07] MEDS: FAMOTIDINE 20 MG TAB PO SCH (09:32)
[2018-10-07] MEDS: DILTIAZEM HCL ER 120 MG CAP PO SCH (09:35)
[2018-10-07] MEDS: DICLOFENAC EPOLAMINE 1.3% PATCH TP SCH (09:41)
--- NOTE | 2018-10-07 10:31 | NUR ---
CASE MANAGEMENT ASSESSMENT Trip Follower to bedside to discuss plan of care with patient/family. CM/SW role and care transitions discussed. Anticipated discharge plan discussed along with duration of care. CM/SW discussed patients right to make decisions in care. CM/SW work hours given. Patient lives: with and daughter Admit/Transfer: thru ED Hospital/ER visits since last admit: December 2017 POA/Emergency contact: daughters Supriya [phone] and Zamzam [phone] Current/Previous Home Health: none PCP/Follow-up Care: Dr. Jose Davila - pt was advised to follow up with PCP within 5 days of discharge from hospital. Pt verbalized understanding and stated that she will work on getting an appointment. Current/Previous DME: none; pt states that she is independent Medications (referring to index hospitalization or the first time you were in the hospital) a. Were changes made in your medications when you were in the hospital on [date of index hospitalization]? n/a b. Did you understand the changes? n/a c. Were you able to obtain your new medications right away? n/a d. Were you able to take your medications like the doctor wanted you to? n/a e. Did the hospital give you an accurate, easy to understand list of medications when you left? n/a Scale of 1-10 how comfortable does patient feel with disease management in outpatient setting: Other Services: none Employment Status: retired Areas of Concerns: new onset a fib Referral Needs: none Education Needs: a fib, medical management IMM/HECTOR given and signed (if applicable): IMM letter delivered and explained to pt. She verbalized understanding. Signed copy placed in chart. Copy to pt. Goal for discharge: Home CM/SW left business card at the bedside with contact information. Name and number was also written on the patients whiteboard. Patient verbalized understanding of discussion. CM will follow-up with ongoing discharge and transition of care needs.
--- NOTE | 2018-10-07 11:00 | NUR ---
PT discharged. IV discontinued, Tip intact, bleeding stopped, dressing placed. Pt wheeled to personal vehicle by the Correlor.Pt has no further needs at this time.
--- NOTE | 2018-10-07 13:53 | NUR ---
Discharge summary ASSESSMENT: A 67-year-old woman. A.fib with RVR UTI Hypokalemia atypical chest pain obesity BMI 35 PLAN: AV blockade IV abx f/u cx recheck lytes hba1c/lipids TSH normal pepcid on AC 10/03/18 Hba1c/LDL 5.691. HR controlled; f/u GNR UTI fx. 10/04 ESBL E.coli UTI; cont merrem; Hba1c/LDL 5.691 10/05 stress test negative; continue IV abx; D#3 Plan to recheck UA tomorrow; 10/06 f/u UA. d/c home f/u pcp 1 week and cardiology 2 weeks stable d/c >35mins home on nitrofurantoin Ruben Ramirez MD, PhD
== END 2018-10-07 11:23 | disposition home or self-care (01) | DRG 309 ==
LOC: ER 07:26 → ERHOLD 10:46 → MED/SURG2 10-02 18:39
PROVIDERS: ADMIT Internal Medicine; ATTEND Internal Medicine
DX: I48.1 Persistent atrial fibrillation (principal); N39.0 Urinary tract infection, site not specified; E87.6 Hypokalemia; B96.20 Unspecified Escherichia coli [E. coli] as the cause of diseases classified elsewhere; Z16.12 Extended spectrum beta lactamase (ESBL) resistance; E66.9 Obesity, unspecified; Z68.35 Body mass index [BMI] 35.0-35.9, adult; R07.89 Other chest pain
CPT/HCPCS: 36415; 71045; 78452; 80053; 80061; 81001; 82550; 82553; 83036; 83735; 83880; 84132; 84443; 84484; 85025; 85610; 85730; 87086; 87186; 93005; 99284; A9502; J0696; J1160; J1650; J7050; J7060

== ENCOUNTER → 2019-08-04 | Day surgery (SDC) | payer MEDICARE, OTHER ==
[2019-07-30 15:02] LABS: BASOPHILS # (AUTO) 0.1 (0.0-0.1); BASOPHILS % 0.8 % (0.0-1.0); EOSINOPHILS # (AUTO) 0.2 (0.0-0.4); EOSINOPHILS % 2.7 % (0.0-6.0); HEMATOCRIT 42.4 % (34.2-44.1); HEMOGLOBIN 13.7 g/dL (12.0-16.0); LYMPHOCYTES # (AUTO) 3.2 (1.0-3.2); LYMPHOCYTES % 38.2 % (18.0-39.1); MEAN CORPUSCULAR HEMOGLOBIN 28.5 pg (28-32); MEAN CORPUSCULAR HGB CONC 32.3 g/dL (31-35); MEAN CORPUSCULAR VOLUME 88.3 fL (81-99); MONOCYTES # (AUTO) 0.6 (0.2-0.8); MONOCYTES % 7.6 % (4.4-11.3); NEUTROPHILS # (AUTO) 4.1 (2.1-6.9); NEUTROPHILS % 50.1 % (38.7-80.0); PLATELET COUNT 262 x10e3/uL (140-360); RED CELL DISTRIBUTION WIDTH 12.1 % (11.7-14.4)
[~2019-08-04] MED LIST changes: +ACETAMINOPHEN/CODEINE 300MG - 30MG TAB ONE; +BACTRIM DS TAB1 EACH PO; +CARTIA XT120 MG PO; +CEFAZOLIN SOD 1 GM/NS 50ML 50 ML IV ONE; +DEXAMETHASONE SOD PHOS INJ 4 MG/ML VIAL ONE; +DILTIAZEM 24HR120 M1 PO; +FENTANYL CITRATE/PF 100MCG/2 ML INJ ONE; +FLECTOR1 EACH PO; +LIDOCAINE HCL 2% LOCAL INJ 5 ML SDV VIAL INJ ONE; +MIDAZOLAM HCL 2 MG/2 ML VIAL ONE; +NITROFURANTOIN100 MG PO; +OMEPRAZOLE40 MG PO; +ONDANSETRON HCL INJ 2MG/ML 2ML 2 MG/ML VIAL ONE; +PEPCID20 MG PO; +PROPOFOL IV EMULSION 10 MG/ML 20 ML VIAL ONE; +SEVOFLURANE INHAL SOLN 250 ML PEN BTL ONE; +XARELTO10 MG PO; +XARELTO20 MG PO
[2019-08-04 08:25] VITALS: BP 137/74
--- NOTE | 2019-08-04 13:32 | Operative Report ---
DATE OF PROCEDURE: 08/04/2019 SURGEON: Bayron Louise MD ECONOMIC CONSULTANT: Nate Sampson, certified PA. PREOPERATIVE DIAGNOSIS: Right 3rd trigger finger. POSTOPERATIVE DIAGNOSIS: Right 3rd trigger finger. PROCEDURE: Release of right 3rd trigger finger. INDICATIONS: The patient is a 68-year-old lady, who has clinic signs and symptoms consistent with a right 3rd trigger finger. She has failed conservative management and would like to proceed with a surgical release. The risks and benefits have been discussed. She states she understands and wishes to proceed. PROCEDURE IN DETAIL: The patient was brought to the operating room and placed under general anesthetic. Her right upper extremity was prepped and draped in a sterile manner. A preoperative time-out was performed. The extremity was exsanguinated and a proximal tourniquet was inflated to 250 mmHg. A transverse incision was made in line with the distal palmar crease and the 3rd finger. The A1 candelario was easily exposed. This was released with a 15 blade surgical knife. The release was completed with a pair of tenotomy scissors. The tendon was retracted from the wound and noted to have good motion without any further evidence of stenosing tenosynovitis. The wound was irrigated and closed with 2 interrupted nylon stitches. A sterile bandage was applied. The patient was extubated and transported to the recovery room in stable condition. There was no blood loss and all needle and sponge counts were correct. Bayron Louise MD DR/DAVID /[id number]
== END | disposition home or self-care (01) ==
LOC: OR 05:00
PROVIDERS: ATTEND Specialist
DX: M65.331 Trigger finger, right middle finger (principal); M06.9 Rheumatoid arthritis, unspecified; I48.91 Unspecified atrial fibrillation; K44.9 Diaphragmatic hernia without obstruction or gangrene; N20.0 Calculus of kidney
CPT/HCPCS: 26055; 36415; 85025; 93005; J0690; J1100; J2001; J2250; J2405; J2704; J3010